=== PATIENT | male | born 1960 | race American Indian/Alaskan Native ===

== ENCOUNTER 2017-12-11 08:31 | Day surgery (SDC) | payer MEDICARE ==
[2017-12-11] MEDS ORDERED: NACL 0.9% 1000 ML 1,000 ML ONE (08:59)
[2017-12-11] MEDS ORDERED: NACL 0.9% 1000 ML 1,000 ML IV SCH (10:00)
--- NOTE | 2017-12-11 12:07 | Consultation ---
History of Present Illness Consult date: 12/11/17 Consult reason: pre op evaluation History of present illness: This is a 57 year old male who presented for an outpatient upper endoscopy. A cardiac consultation was requested for pre-operative risk assessment. Patient gives a history of nonischemic cardiomyopathy by cardiac cath 3 years ago reported as negative. His ocular care technologist is at [facility]. 3 days ago he reports nonexertional chest pain relieved with nitroglycerin. Patient describes chest pain shortly after consuming a meal. He has since remained chest pain free. He denies unusual shortness of breath and palpitations. There were no reports of syncope. There is no lower extremity edema. His ECG is benign, a normal sinus rhythm. Medications and Allergies Allergies Allergy/AdvReac Type Severity Reaction Status Date / Time morphine Allergy Rash Verified 12/11/17 09:43 Home Medications Medication Instructions Recorded Confirmed Last Taken Type Lisinopril/Hydrochlorothiazide 10 - 12.5 mg PO DAILY 12/09/17 12/09/17 Unknown History Women's 50 Plus Daily Formula 100 mg PO DAILY 12/09/17 12/09/17 Unknown History Active Meds: Active Medications Sodium Chloride (Nacl 0.9% 1000 Ml) 1,000 mls @ 50 mls/hr IV DIRECT ADRIANE Physical Examination Vital Signs Temp Pulse Resp BP Pulse Ox 97.3 F L 77 24 141/86 97 12/11/17 09:29 12/11/17 09:29 12/11/17 09:29 12/11/17 09:29 12/11/17 09:29 General appearance: no acute distress HEENT: Positive: PERRL Cardiac: Positive: Reg Rate and Rhythm Lungs: Positive: Decreased Breath Sounds Neuro: Positive: Grossly Intact Extremities: Absent: edema Assessment and Plan Pre-op cardiac assessment Nonischemic cardiomyopathy followed by [facility]. pt reports a negative cardiac cath late 2014. Hypertension Cardiac status is stable. Ok to proceed with upper GI endoscopy.
[2017-12-11] MEDS ORDERED: DIPRIVAN 10 MG/ML IV ONE (12:18)
[2017-12-11] MEDS ORDERED: XYLOCAINE 2% INFILTRATI ONE (12:19)
[2017-12-11] MEDS ORDERED: SUBLIMAZE ONE (12:23)
--- NOTE | 2017-12-11 12:53 | Operative Report ---
Operative Report Operative Report: Date: 12/11/2017 Operative Report: Date of procedure: 12/11/2017 Procedure: Esophagogastroduodenoscopy with multiple mucosal biopsies. Attending physician: Pino Venegas MD Ivory Carver: Pino Venegas MD Indication: Patient is a 57 -year-old male who presented with a history of epigastric pain, heartburn, and indigestion and blood in stool. An upper endoscopy is done to assess patient, so that treatment may be directed based on the findings. Consent: Informed consent was obtained after advising the patient and family regarding nature of this procedure, its indications, potential benefits as well as possible complications including but not limited to bleeding perforation and adverse reaction to medication, infection as well as other cardiopulmonary complications. An informed written and verbal consent was then obtained after due opportunity was provided for questions and answers. Monitoring: Patient was monitored continuously with pulse oximetry and electrocardiographic recordings as well as blood pressure recordings. Vital signs remained stable throughout this procedure with no untoward events. Preoperative assessment: Patient was assessed immediately prior to this procedure for capacity to tolerate monitored anesthesia care and moderate sedation as well as general anesthesia. Patient's ASA classification is 3, Mallampati class is 2, Hyomental distance is 3. Instrument: [employer] video endoscope Medications: Propofol given intravenously in divided doses. For details please refer to anesthesia records. Description of procedure: Patient was placed in the left lateral decubitus position after achieving sedation, the endoscope was introduced into the esophagus under direct vision. It was then advanced beyond the esophagus into the stomach and then beyond the stomach into the duodenum and to the second portion of the duodenum. It was subsequently withdrawn with careful inspection of all mucosal surfaces with the following findings. Findings: Patient has an irregular Z line at 40 cm. There were linear erosions seen in the distal esophagus. There was a small diminutive sliding hiatal hernia seen on entry into the stomach. There was some erythema in the gastric antrum. Biopsies of the antrum were obtained for histopathology. The duodenum was normal to second portion. Impression: Irregular Z line. Mild erosive esophagitis Gastric antral erythema Small Hiatal hernia. Plan: Continue treatment with proton pump inhibitors. Follow pathology report. Direct additional treatment based on the pathology report.
--- NOTE | 2017-12-11 12:54 | Discharge Summary ---
Short Stay Discharge Plan Activity: advance as tolerated Weight Bearing Status: Weight Bear as Tolerated Diet: regular Additional Instructions: Post Sedation D/C Instructions When you return home you may resume your regular diet unless otherwise directed. -Go directly home from the hospital and rest quietly. You may resume normal activities tomorrow. -Do NOT drive, return to work, operate any machinery or make any important personal or business decisions today. -Do NOT drink any alcohol or take nerve or sleeping drugs. They add to the effects of the medicine still present in your body. Follow up with Dr. Venegas in 2 weeks to obtain pathology results and treatment plan. Follow up with: PRAKASH LOPEZ JR, MD [Primary Care Provider] - 7 Days
[2017-12-11 13:41] VITALS: BP 120/76
== END 2017-12-11 08:32 | disposition home or self-care (01) ==
LOC: GIO 08:31
PROVIDERS: ATTEND Internal Medicine Gastroenterology
DX: K29.50 Unspecified chronic gastritis without bleeding (principal); K22.10 Ulcer of esophagus without bleeding; K44.9 Diaphragmatic hernia without obstruction or gangrene; I11.0 Hypertensive heart disease with heart failure; I50.9 Heart failure, unspecified; G47.30 Sleep apnea, unspecified; I25.10 Atherosclerotic heart disease of native coronary artery without angina pectoris; Z87.891 Personal history of nicotine dependence; Z90.49 Acquired absence of other specified parts of digestive tract
CPT/HCPCS: 43239; 82962; 88305; 88342; 93005; 93010; J2704; J3010; J7030